=== PATIENT | male | born 1955 | race Caucasian/White ===

== ENCOUNTER 2017-02-07 09:54 | Emergency (ER) | payer SELFPAY ==
[~2017-02-07] VITALS: Ht 177.8 cm; Wt 83.9 kg
[~2017-02-07 09:54] MED LIST: AMLO5TAB8 PO
[2017-02-07 09:56] VITALS: BP_SYST 172; BP_SYST 188; BP_DIAS 122
--- NOTE | 2017-02-07 09:58 | NUR ---
Patient being evaluated by physician.
[2017-02-07 10:08] VITALS: BP 172/122
--- NOTE | 2017-02-07 10:08 | NUR ---
PATIENT IS A 61 YO MALE BIB [facility] FOR PREBOOK EXAM. PATIENT IS AWAKE AND ALERT ABLE TO AMBULATE. C/C IS HIGH BLOOD PRESSURE. SEEN BY DR. WELLS IN OVERFLOW. TAKES BP MEDS BUT DOESN'T REMEMBER THE NAMES. WATER RESOURCES TECHNICAL OFFICER IS AT [facility] OFFICE.
--- NOTE | 2017-02-07 10:10 | NUR ---
Patient discharged with v/s stable. Written and verbal after care instructions given and explained. Patient verbalized understanding. Police with in custody. All questions addressed prior to discharge. Advised to follow up with PMD.
== END 2017-02-07 10:10 ==
LOC: MED 09:54
DX: Z02.89 Encounter for other administrative examinations (principal); I10 Essential (primary) hypertension; Z79.899 Other long term (current) drug therapy; F17.210 Nicotine dependence, cigarettes, uncomplicated
CPT/HCPCS: 99283

== ENCOUNTER 2017-06-21 14:51 | Inpatient (IN) | payer SELFPAY ==
[~2017-06-21] VITALS: Ht 177.8 cm; Wt 83.9 kg
[2017-06-21 14:58] VITALS: BP 192/106
--- NOTE | 2017-06-21 14:58 | NUR ---
Pt placed in bed 10 by EMS.
--- NOTE | 2017-06-21 14:59 | NUR ---
61/M biba found by the [facility] in [place] for evaluation of generalized weakness x2 days. AOX4, clear speech. Pt noted with N/V; vomiting x1 in ED. IV established by EMS to left ac 18 gauge. Pt received 4mg Zofran IVP prior to arrival by EMS. Hx HTN.
--- NOTE | 2017-06-21 15:07 | NUR ---
Per EMS, pt did speed today.
[2017-06-21] MEDS ORDERED: cloNIDine 0.1 MG TAB PO ONE (15:30)
[2017-06-21] MEDS ORDERED: LABETALOL 100 MG/20 ML VIAL IVP ONE (15:30)
[2017-06-21] MEDS ORDERED: ONDANSETRON 4 MG/2 ML VIAL IVP ONE (15:30)
--- NOTE | 2017-06-21 16:03 | NUR ---
Patient appears to be resting comfortably in bed. Warm blankets provided. Pt placed in position of comfort, pillow provided. All comfort needs met. All belongings placed in a belongings bag and set behind the head of gurney and patient was made aware as well. Pt verbalized understanding.
[2017-06-21] MEDS ORDERED: NACL 0.9% 1,000 ML IV SCH (16:09)
--- NOTE | 2017-06-21 16:09 | NUR ---
Pt taken to CT via rjenni.
[2017-06-21] MEDS ORDERED: ACETAMINOPHEN 325 MG TAB PO PRN ×2 (16:10→16:20)
[2017-06-21] MEDS ORDERED: HYDROcodone/APAP 7.5/325 MG 1 TAB PO PRN ×2 (16:10→16:20)
[2017-06-21] MEDS ORDERED: ONDANSETRON 4 MG/2 ML VIAL IM/IVP PRN (16:10)
[2017-06-21] MEDS ORDERED: MORPHINE SULFATE 2 MG/ML SYR IVP PRN (16:10)
[2017-06-21] MEDS ORDERED: DOCUSATE SODIUM 100 MG GELCAP PO PRN (16:10)
[2017-06-21] MEDS ORDERED: NON-FORMULARY ITEM (Amlodipine Besylate (Amlodipine) 5 MG) PO SCH (16:15)
--- NOTE | 2017-06-21 16:19 | NUR ---
Pt back from CT and placed in bed 10.
[2017-06-21] MEDS ORDERED: ONDANSETRON 4 MG/2 ML VIAL IVP PRN (16:20)
--- NOTE | 2017-06-21 16:22 | NUR ---
X-Ray at bedside.
[2017-06-21] MEDS ORDERED: MECLIZINE 25 MG TAB PO PRN (16:45)
[2017-06-21] MEDS ORDERED: hydrALAZINE 20 MG/ML VIAL IVP ONE (16:55)
[2017-06-21 16:56] LABS: BASOPHILS # (AUTO) 0.1 K/uL (0.00-0.22); BASOPHILS % (AUTO) 1.2 % (0.0-2.0); EOSINOPHILS % (AUTO) 0.4 % (0.0-4.0); HEMATOCRIT 48.6 % (36-52); HEMOGLOBIN 15.2 g/dL (12.0-18.0); LYMPHOCYTES # (AUTO) 0.5 K/uL (2.0-11.5); MEAN CORPUSCULAR HEMOGLOBIN 28 pg (27-31); MEAN CORPUSCULAR HGB CONC 31 g/dL (33-37); MEAN CORPUSCULAR VOLUME 90 fL (80-94); MONOCYTES # (AUTO) 0.5 K/uL (0.8-1.0); MONOCYTES % (AUTO) 5.2 % (1.7-9.3); NEUTROPHILS # (AUTO) 7.9 K/uL (1.8-7.7); NEUTROPHILS % (AUTO) 87.2 % (42.2-75.2); PLATELET COUNT (AUTO) 296 K/uL (140-450); RED BLOOD CELL COUNT(AUTO) 5.41 MIL/uL (4.20-6.10); RED CELL DISTRIBUTION WIDTH 15.7 % (11.6-13.7)
[2017-06-21] MEDS ORDERED: amLODIPine 5 MG TAB PO SCH (17:00)
[2017-06-21] MEDS ORDERED: DOCUSATE SODIUM 100 MG GELCAP PO SCH (17:00)
[2017-06-21] MEDS ORDERED: ENALAPRILAT 2.5 MG/2 ML VIAL IVP SCH (17:00)
[2017-06-21 17:10] LABS: ANION GAP 11.7 (8-16); CARBON DIOXIDE 31.6 mmol/L (21-32); CHLORIDE 101 mmol/L (98-107); CREATININE 1.1 mg/dL (0.7-1.3); GFR ARICAN-AMERICAN 87 mL/min (>90); GLUCOSE 162 mg/dL (74-106); POTASSIUM 3.3 mmol/L (3.5-5.1); SODIUM SERUM 141 mmol/L (136-145); UREA NITROGEN, BLOOD 21 mg/dL (7-18)
--- NOTE | 2017-06-21 17:12 | NUR ---
Patient will be admitted to care of Dr. Orta. Admited to Tele. Will go to room 119-B. Belongings list completed. Report to Frandy MARTIN. Pt transferred to Tele via marisol on cardiac monitoring accompanied by EMT Anahi and myself. All belongings sent along with the patient.
[2017-06-21 17:16] LABS: ALBUMIN 3.3 g/dL (3.4-5.0); ASPARTATE AMINOTRANSFERASE 15 U/L (15-37); TOTAL BILIRUBIN 0.2 mg/dL (0.0-1.0)
[2017-06-21 17:17] LABS: ACETAMINOPHEN < 0.5 ug/ml (10-30)
[2017-06-21 17:20] VITALS: BP 157/93
--- NOTE | 2017-06-21 17:20 | NUR ---
PATIENT ARRIVED ON MST UNIT FROM ER BED/RNEY. ABLE TO AMBULATE FROM ER BED TO MST BED WITH STEADY GAIT. NO DISTRESS NOTED. RESPIRATIONS, EVEN, UNLABORED, ON ROOM AIR. DENIES ANY PAIN AT THIS TIME. AAOX4, CALM, COOPERATIVE, SKIN COLOR APPROPRIATE TO ETHNICITY, WARM TO TOUCH. SKIN IS INTACT. IV SITE IS INTACT, PATENT, AND CONNECTED PATIENT TO IVF PER ORDERS. LUNGS CTA ON ALL LOBES. ABDOMEN SOFT, NON-DISTENDED. ORIENTED PATIENT TO ROOM AND CALL LIGHT. REVIEWED PLAN OF CARE WITH PATIENT. PATIENT VERBALIZED UNDERSTANDING. SAFETY MEASURES IN PLACE, CALL LIGHT WITHIN REACH. WILL CONTINUE TO MONITOR.
[2017-06-21 17:25] LABS: PROTHROMBIN TIME 10.5 secs (10.8-13.4)
[2017-06-21 17:35] LABS: CHOL/HDL RATIO 3.5 (1-4.5); FREE T4 (FREE THYROXINE) 0.8 ng/dL (0.76-1.46); PHOSPHORUS 2.6 mg/dL (2.5-4.9); THYROID STIMULATING HORMONE 1.6 uIU/mL (0.34-3.74)
--- NOTE | 2017-06-21 18:00 | NUR ---
PATIENT LYING DOWN IN BED SLEEPING, AROUSABLE BY VOICE. DENIES ANY PAIN. SCHEDULED MEDICATIONS DUE GIVEN. COMPLAINS OF DIZZINESS. BLOOD PRESSURE STILL ELEVATED. SAFETY MEASURES IN PLACE, CALL LIGHT WITHIN REACH. WILL CONTINUE TO MONITOR.
[2017-06-21] MEDS: NACL 0.9% 1,000 ML IV SCH (18:27)
--- NOTE | 2017-06-21 18:30 | NUR ---
RADIOLOGIST AT BEDSIDE TO DO A KIDNEY ULTRASOUND SCAN CALLED VIA PHONE. PATIENT REFUSED AT THIS TIME STATING "I WANT TO JUST REST AND EAT FOR NOW". RADIOLOGIST SUGGEST KEEPING PATIENT NPO AT MIDNIGHT AND SHE WILL BE BACK IN THE MORNING TO DO THE SCANS. WILL CONTINUE TO MONITOR.
--- NOTE | 2017-06-21 19:28 | NUR ---
GAVE REPORT TO ONLINE USER EXPERIENCE STRATEGIST NURSE FOR CONTINUITY OF CARE. PATIENT IN STABLE CONDITION.
--- NOTE | 2017-06-21 19:35 | NUR ---
RECEIVED REPORT FROM AM NURSE. PT RESTING IN BED, AOX4, ABLE TO VERBALIZE NEEDS. BIOMECHANICAL ENGINEER IN PLACE. PT DENIES CP, SOB, DIZZINESS AT THIS TIME. SPO2 100% ON ROOM AIR, RR 20 EVEN AND UNLABORED. IV ACCESS ASYMPTOMATIC, PATENT AND INTACT. DISCUSSED AND REVIEWED PLAN OF CARE WITH PT. PT AGREED TO HAVE US KIDNEY AND US CAROTID, WILL NOTIFY US TECH. INSTRUCTED PT TO COLLECT URINE SAMPLE, PT VERBALIZED UNDERSTANDING, WILL SEND TO LAB WHEN COLLECTED. ALL NEEDS MET. SAFETY MEASURES ENSURED. CALL LIGHT WITHIN REACH.
[2017-06-21 20:00] VITALS: BP 149/97
[2017-06-21 21:53] LABS: APPEARANCE,URINE CLEAR (CLEAR); BILIRUBIN,URINE NEGATIVE (NEGATIVE); BLOOD, URINE NEGATIVE (NEGATIVE); COLOR,URINE YELLOW (YELLOW); LEUKOCYTE ESTERASE ,URINE NEGATIVE (NEGATIVE); NITRITE, URINE NEGATIVE (NEGATIVE); UGLUCOSE 1+ (NEGATIVE)
[2017-06-21 21:57] LABS: BARBITURATE, URINE NEG. ng/ml (NEG <=200); BENZODIAZEPINE, URINE NEG. ng/mL (NEG <=200); CANNABINOID, URINE NEG. ng/mL (NEG <=50); COCAINE, URINE NEG. ng/mL (NEG <=300); OPIATE, URINE NEG. ng/mL (NEG <=2000); PHENCYCLIDINE SCREEN,URINE NEG. ng/mL (NEG <=25)
[2017-06-21] MEDS ORDERED: POTASSIUM CHLORIDE 10 MEQ TABER PO SCH (22:05)
--- NOTE | 2017-06-21 22:25 | NUR ---
ADMINISTERED ORDERED K-DUR PO WITH EDUCATION, PT VERBALIZED UNDERSTANDING, TOLERATED WELL. US RENAL AND US CAROTID ALREADY PERFORMED BY [facility], PT'S DIET IS NOW CARDIAC DIET, PROVIDED PT WITH SANDWICH AND SNACKS. ALL NEEDS MET. IVF INFUSING WELL. SAFETY MEASURES ENSURED. CALL LIGHT WITHIN REACH.
[2017-06-22] VITALS (7 sets, daily range): BP systolic 147–175; BP diastolic 93–108
--- NOTE | 2017-06-22 00:15 | NUR ---
PT SLEEPING COMFORTABLY, AROUSABLE TO NAME, SPO2 96% ON ROOM AIR, RR 18 EVEN AND UNLABORED. ALL NEEDS MET. IVF INFUSING WELL. SAFETY MEASURES ENSURED. CALL LIGHT WITHIN REACH.
[2017-06-22] MEDS ORDERED: LISINOPRIL 20 MG TAB PO SCH ×2 (04:05→13:20)
--- NOTE | 2017-06-22 04:06 | NUR ---
SPOKE WITH DR RANKIN, MADE AWARE OF ELEVATED BP AT THIS TIME 162/105, HR 105. TO ORDER LISINOPRIL PO, ORDERS PENDING, WILL CARRY OUT. Addendum: 06/22/17 at 0646 by Lamine Crystal RN MADE AWARE OF K 3.3 ON ADMISSION AND WAS REPLACED WITH 40 MEQ K-SIVA IN THE EVENING, AWARE.
[2017-06-22] MEDS: NACL 0.9% 1,000 ML IV SCH ×2 (04:50→11:11)
[2017-06-22] MEDS ORDERED: LISINOPRIL 10 MG TAB ONE (05:18)
--- NOTE | 2017-06-22 05:25 | NUR ---
ADMINISTERED LISINOPRIL 20MG PO WITH EDUCATION. PT VERBALIZED UNDERSTANDING, TOLERATED MED WELL. ALL NEEDS MET. IVF INFUSING WELL. SAFETY MEASURES ENSURED. CALL LIGHT WITHIN REACH.
[2017-06-22 06:18] LABS: T4 (THYROXINE) 5.8 ug/dL (4.5-12.0)
--- NOTE | 2017-06-22 07:10 | NUR ---
ENDORSED PLAN OF CARE TO AM NURSE. CONDITION STABLE.
--- NOTE | 2017-06-22 07:15 | NUR ---
RECEIVED REPORT FROM CNC WOOD LATHE OPERATOR NURSE. PT IS SLEEPING IN BED BUT EASILY AWAKEN, PT IS AAOX4, AMBULATORY, PT HAS IV ON HIS LEFT AC, PATENT, INTACT, FLUSHING WELL, NO S/S OF RESPIRATORY DISTRESS OR DISCOMFORT NOTED, PT IS ON ROOM AIR AT THIS TIME, SKIN IS INTACT, NO S/S OF RESPIRATORY DISTRESS OR DISCOMFORT NOTED, DISCUSSED PLAN OF CARE WITH PT, PT VERBALIZED UNDERSTANDING, CALL LIGHT IS WITHIN REACH, WILL CONTINUE TO MONITOR.
[2017-06-22] MEDS ORDERED: DOCUSATE SODIUM 100 MG GELCAP PO SCH ×2 (09:00)
[2017-06-22] MEDS ORDERED: amLODIPine 5 MG TAB PO SCH ×2 (09:00)
--- NOTE | 2017-06-22 09:21 | NUR ---
DUE MEDICATION GIVEN, PT TOLERATED WELL, CALL LIGHT WITHIN REACH, ALL NEEDS MET AT THIS TIME.
[2017-06-22] MEDS ORDERED: ECOTRIN 81 MG TABEC PO SCH (09:40)
[2017-06-22 12:38] LABS: BASOPHILS # (AUTO) 0.2 K/uL (0.00-0.22); BASOPHILS % (AUTO) 1.9 % (0.0-2.0); EOSINOPHILS # (AUTO) 0.1 K/uL (0-0.4); EOSINOPHILS % (AUTO) 0.6 % (0.0-4.0); HEMATOCRIT 47.3 % (36-52); MEAN CORPUSCULAR HEMOGLOBIN 28 pg (27-31); MEAN CORPUSCULAR HGB CONC 32 g/dL (33-37); MEAN CORPUSCULAR VOLUME 90 fL (80-94); MONOCYTES # (AUTO) 1.2 K/uL (0.8-1.0); MONOCYTES % (AUTO) 11.1 % (1.7-9.3); NEUTROPHILS # (AUTO) 8.8 K/uL (1.8-7.7); NEUTROPHILS % (AUTO) 77.4 % (42.2-75.2); PLATELET COUNT (AUTO) 332 K/uL (140-450); RED BLOOD CELL COUNT(AUTO) 5.28 MIL/uL (4.20-6.10); RED CELL DISTRIBUTION WIDTH 16.1 % (11.6-13.7); WHITE BLOOD COUNT (AUTO) 11.3 K/uL (4.8-10.8)
[2017-06-22 12:39] LABS: ANION GAP 8.8 (8-16); CARBON DIOXIDE 33.4 mmol/L (21-32); POTASSIUM 4.2 mmol/L (3.5-5.1)
[2017-06-22 12:44] LABS: MAGNESIUM 2.1 mg/dL (1.8-2.4); PHOSPHORUS 2.7 mg/dL (2.5-4.9)
--- NOTE | 2017-06-22 12:59 | NUR ---
INFORMED DR. ROTH PATIENT'S BLOOD PRESSURE WAS 175/105. DOCTOR SAID SHE WOULD PUT IN AN ORDER FOR ANOTHER DOSE OF NORVASC.
[2017-06-22] MEDS ORDERED: hydrALAZINE 20 MG/ML VIAL IVP SCH (13:20)
[2017-06-22] MEDS ORDERED: amLODIPine 5 MG TAB PO ONE (13:20)
[2017-06-22] MEDS ORDERED: NICOTINE TRANSD SYS 14 MG/24 HR PATCH TD SCH (13:40)
--- NOTE | 2017-06-22 14:48 | NUR ---
RECHECKED PATIENT BLOOD PRESSURE, BP: 146/93, HR: 115, TEMP.98.7, RESP. 14, O2: 96%.
--- NOTE | 2017-06-22 15:45 | NUR ---
PT SLEEPING IN BED AT THIS TIME, NO S/S OF RESPIRATORY DISTRESS OR DISCOMFORT NOTED, CALL LIGHT IS WITHIN REACH.
--- NOTE | 2017-06-22 17:00 | NUR ---
PT SLEEPING IN BED AT THIS TIME, CALL LIGHT WITHIN REACH.
--- NOTE | 2017-06-22 19:25 | NUR ---
ENDORSED PT TO SAFE AND VAULT SERVICE MECHANIC NURSE FOR CONTINUITY OF CARE, PT STABLE AT THIS TIME.
--- NOTE | 2017-06-22 19:28 | NUR ---
RECEIVED REPORT FROM DAY SHIFT NURSE. AAOX4. IV TO LEFT AC #18G, NS AT 80 ML/HR. NO DISTRESS NOTED. PT ON ROOM AIR. DISCUSSED PLAN OF CARE, PT VERBALIZED UNDERSTANDING. SAFETY PRECAUTION IN PLACE. CALL LIGHT WITHIN REACH. WILL CONTINUE TO MONITOR.
--- NOTE | 2017-06-22 20:05 | NUR ---
DR. BRANHAM MADE AWARE OF PT'S ELEVATED BLOOD PRESSURE. MD ORDERED LISINOPRIL 20 MG TAB PO. ORDER NOTED AND WILL CARRY OUT.
[2017-06-22] MEDS: LISINOPRIL 20 MG TAB PO SCH ×2 (20:42→20:46)
[2017-06-22] MEDS ORDERED: ATORVASTATIN 20 MG TAB PO SCH ×2 (21:00)
[2017-06-23] VITALS: BP 170/105
[2017-06-23] MEDS ORDERED: hydrALAZINE 20 MG/ML VIAL IVP SCH (00:30)
--- NOTE | 2017-06-23 00:30 | NUR ---
INFORMED DR. BRANHAM'S PT'S ELEVATED BP 170/105. SAID HE WILL PUT THE ORDER FOR HYDRALAZINE.
--- NOTE | 2017-06-23 01:15 | NUR ---
PT REFUSED BP MEDS. EXPLAINED TO PT THE IMPORTANCE OF MEDS BUT STILL REFUSED. WILL COME BACK LATER TO RECHECK V/S.
--- NOTE | 2017-06-23 03:00 | NUR ---
RECHECKED V/S BP 106/104, HR 100. HYDRALAZINE 5 MG IVP ADMINISTERED ORDERED. NO DISTRESS NOTED. CALL LIGHT WITHIN REACH.
[2017-06-23 04:00] VITALS: BP 170/117
--- NOTE | 2017-06-23 04:05 | NUR ---
INFORMED DR. BRANHAM OF PT'S BP 170/117 HR 116. SAID HE WILL ORDER BP MEDS.
[2017-06-23] MEDS: cloNIDine 0.1 MG TAB PO SCH ×2 (05:15→13:33)
--- NOTE | 2017-06-23 05:15 | NUR ---
CATAPRESS 0.1MG TAB PO GIVEN. NO DISTRESS NOTED. WILL RECHECK V/S. CALL LIGHT WITHIN REACH.
[2017-06-23] MEDS: NACL 0.9% 1,000 ML IV SCH (05:51)
[2017-06-23 07:00] VITALS: BP 152/100
--- NOTE | 2017-06-23 07:00 | NUR ---
RECHECKED PT'S V/S. BP 153/100, HR 102. NO DISTRESS NOTED. DR. BRANHAM MADE AWARE. NO NEW ORDER.
--- NOTE | 2017-06-23 07:05 | NUR ---
ENDORSED PT TO DAY SHIFT NURSE. PT IN STABLE CONDITION.
--- NOTE | 2017-06-23 07:10 | NUR ---
RECEIVED REPORT FROM INSULATION WORKER FURNACE INSTALLER NURSE. PT IS SLEEPING IN BED BUT EASILY AWAKEN, PT IS AAOX4, AMBULATORY, PT HAS IV ON HIS LEFT AC, PATENT, INTACT, FLUSHING WELL, NO S/S OF RESPIRATORY DISTRESS OR DISCOMFORT NOTED, PT IS ON ROOM AIR AT THIS TIME, SKIN IS INTACT, NO S/S OF RESPIRATORY DISTRESS OR DISCOMFORT NOTED, DISCUSSED PLAN OF CARE WITH PT, PT VERBALIZED UNDERSTANDING, CALL LIGHT IS WITHIN REACH, WILL CONTINUE TO MONITOR.
[2017-06-23 07:23] LABS: BASOPHILS # (AUTO) 0.3 K/uL (0.00-0.22); BASOPHILS % (AUTO) 2.1 % (0.0-2.0); EOSINOPHILS # (AUTO) 0.2 K/uL (0-0.4); EOSINOPHILS % (AUTO) 1.3 % (0.0-4.0); HEMATOCRIT 50.4 % (36-52); HEMOGLOBIN 16.1 g/dL (12.0-18.0); LYMPHOCYTES # (AUTO) 1.7 K/uL (2.0-11.5); MEAN CORPUSCULAR HEMOGLOBIN 29 pg (27-31); MEAN CORPUSCULAR HGB CONC 32 g/dL (33-37); MEAN CORPUSCULAR VOLUME 90 fL (80-94); MONOCYTES # (AUTO) 1.4 K/uL (0.8-1.0); NEUTROPHILS # (AUTO) 10.4 K/uL (1.8-7.7); NEUTROPHILS % (AUTO) 74.6 % (42.2-75.2); PLATELET COUNT (AUTO) 348 K/uL (140-450); RED BLOOD CELL COUNT(AUTO) 5.58 MIL/uL (4.20-6.10)
[2017-06-23 07:38] LABS: ANION GAP 12.2 (8-16); CARBON DIOXIDE 30.6 mmol/L (21-32); CREATININE 0.9 mg/dL (0.7-1.3); POTASSIUM 3.8 mmol/L (3.5-5.1)
[2017-06-23 07:46] LABS: PHOSPHORUS 2.8 mg/dL (2.5-4.9)
[2017-06-23] MEDS: LISINOPRIL 20 MG TAB PO SCH (08:07)
--- NOTE | 2017-06-23 08:07 | NUR ---
DUE MEDICATIONS GIVEN, PT TOLERATED WELL, CALL LIGHT IS WITHIN REACH.
[2017-06-23] MEDS ORDERED: NICOTINE TRANSD SYS 14 MG/24 HR PATCH TD SCH (09:00)
[2017-06-23] MEDS ORDERED: ECOTRIN 81 MG TABEC PO SCH (09:00)
[2017-06-23] MEDS ORDERED: amLODIPine 5 MG TAB PO SCH (09:00)
--- NOTE | 2017-06-23 10:15 | NUR ---
PT SLEEPING IN BED, CALL LIGHT WITHIN REACH.
[2017-06-23] MEDS ORDERED: ASPI-1173 PO (11:54)
[2017-06-23] MEDS ORDERED: ATOR20TA40 PO (11:54)
[2017-06-23] MEDS ORDERED: LISI-420 PO (11:54)
[2017-06-23] MEDS ORDERED: AMLO10TA PO (11:55)
--- NOTE | 2017-06-23 12:30 | NUR ---
PT SITTING UP IN BED EATING LUNCH, NO S/S OF RESPIRATORY DISTRESS OR DISCOMFORT NOTED, CALL LIGHT IS WITHIN REACH.
[2017-06-23 15:00] VITALS: BP 146/91
--- NOTE | 2017-06-23 15:00 | NUR ---
DISCHARGE INSTRUCTIONS GIVEN, PATIENT WAS PROVIDED WITH A BUS PASS AND HOMELESS LONG-TERM RESOURCES. PT SAID HE WOULD BE GOING TO HIS FRIENDS HOUSE ON [address]. IV REMOVED, CATHETER TIP INTACT.
[2017-06-23 15:10] VITALS: BP 146/91
--- NOTE | 2017-06-23 16:30 | NUR ---
PT STABLE UPON DISCHARGE.
== END 2017-06-23 16:30 | disposition home or self-care (01) | DRG 304 ==
LOC: MED 14:51 → MTU 16:13
PROVIDERS: ADMIT Student in an Organized Health Care Education/Training Program; ATTEND Student in an Organized Health Care Education/Training Program
DX: I16.0 Hypertensive urgency (principal); G92 Toxic encephalopathy; N17.0 Acute kidney failure with tubular necrosis; I67.4 Hypertensive encephalopathy; E44.1 Mild protein-calorie malnutrition; I10 Essential (primary) hypertension; G31.89 Other specified degenerative diseases of nervous system; Z91.19 Patient's noncompliance with other medical treatment and regimen; Z59.0 Homelessness; G96.9 Disorder of central nervous system, unspecified; F19.10 Other psychoactive substance abuse, uncomplicated; F15.10 Other stimulant abuse, uncomplicated; Z68.26 Body mass index [BMI] 26.0-26.9, adult; E78.5 Hyperlipidemia, unspecified; S83.92XA Sprain of unspecified site of left knee, initial encounter; X58.XXXA Exposure to other specified factors, initial encounter; Y93.89 Activity, other specified; Y92.89 Other specified places as the place of occurrence of the external cause; Y99.8 Other external cause status; N28.1 Cyst of kidney, acquired
CPT/HCPCS: 36415; 70450; 71045; 73560; 80048; 80053; 80305; 81003; 82140; 82150; 82550; 82948; 83036; 83690; 83735; 83880; 84100; 84436; 84439; 84443; 84479; 84484; 85025; 85610; 85730; 87040; 87081; 87086; 93005; 93880; 93976; 96374; 96375; 99291; G0480; G0482; J0360; J2405; J3490; J7030; Q0092